=== PATIENT | female | born 1975 | race Caucasian/White ===

== ENCOUNTER 2017-04-25 02:17 | Emergency (ER) | payer OTHER, BC ==
[2017-04-25] MEDS ORDERED: IBUPROFEN 600 MG TABLET (FP) PO ONE (02:23)
[2017-04-25] MEDS ORDERED: DIPHTH,PERTUSS(ACELL),TET 0.5 ML DISP.SYRIN IM ONE (02:25)
[2017-04-25 02:27] VITALS: BP 129/88; PULSE 89; TEMP 98.1; BMI 27.3
--- NOTE | 2017-04-25 02:29 | PDOC ---
History of Present Illness - General Chief Complaint: Injury Stated Complaint: FELL DOWN 12 STEPS Time Seen by Provider: 04/25/17 02:23 History Source: Patient Exam Limitations: No Limitations - History of Present Illness Initial Comments: 04/25/17 02:25 This is a 41-year-old female who comes in with her for evaluation status post fall down some steps. Patient denies any passing out. Patient's complaining of right knee pain and left hip pain and right hand.. Patient was able to ambulate into the ED. PAST MEDICAL HISTORY: no significant history PAST SURGICAL HISTORY: no significant history FAMILY HISTORY: no pertinant history SOCIAL HISTORY: Pt lives with family and is employed. MEDICATIONS: reviewed ALLERGIES: As per nursing notes Review of Systems General: No fevers or chills, no weakness, no weight loss HEENT: No change in vision. No sore throat,. No ear pain CardioVascular: No chest pain or shortness of breath Respiratory:No cough, or wheezing. Gastrointestinal: no nausea, vomitting, diarrhea or constipation, No rectal bleeding Genitourinary: No dysuria, hematuria, or frequency Musculoskeletal: No joint or muscle pain or swelling Neurologic: No headache, vertigo, dizziness or loss of consciousness Psychiatric: nor depression Skin: No rashes or easy bruising Endocrine: no increased thirst or abnormal weight change Allergic: no skin or latex allergy All other systems reviewed and normal GENERAL: The patient is awake, alert, and fully oriented, in no acute distress. HEAD: Normal with no signs of trauma. EYES: Pupils equal, round and reactive to light, extraocular movements intact, sclera anicteric, conjunctiva clear. EXTREMITIES: Normal range of motion, no edema. Left knee there is a contusion with small abrasion no bony tenderness Right knee there is a contusion with abrasion but no bony tenderness neurovascular distal lateral lower extremities is intact Right hand there is a contusion over the thenar eminence but no bony tenderness Left hip there is tenderness of the left hip leg is not shortened or externally rotated neurovascular distal is intact Abdomen: Soft normal bowel sounds nontender NEUROLOGICAL: Normal speech, normal gait. grossly intact PSYCH: Normal mood, normal affect. SKIN: Warm, Dry, normal turgor, no rashes or lesions noted. X-rays left hip and pelvis were negative for any acute pathology Assessment and plan: This is a 41-year-old female who injured herself when she fell down some steps. Patient had several contusions and abrasions. Patient was given tetanus. X-rays were negative for any acute pathology Patient discharged home with her will follow-up with the primary care doctor. Patient was also instructed to take an anti-inflammatory for the pain. Past History - Past Medical History Allergies/Adverse Reactions: Allergies Allergy/AdvReac Type Severity Reaction Status Date / Time No Known Allergies Allergy Verified 04/25/17 02:18 Home Medications: Ambulatory Orders Hydrochlorothiazide [Hctz -] 25 mg PO DAILY 04/25/17 Lisinopril [Zestril] 10 mg PO DAILY 04/25/17 *DC/Admit/Observation/Transfer Diagnosis at time of Disposition: Contusion of knee, left Qualifiers: Encounter type: initial encounter Qualified Code(s): S80.02XA - Contusion of left knee, initial encounter Contusion of knee, right Qualifiers: Encounter type: initial encounter Qualified Code(s): S80.01XA - Contusion of right knee, initial encounter Contusion of left hip Qualifiers: Encounter type: initial encounter Qualified Code(s): S70.02XA - Contusion of left hip, initial encounter Contusion of right hand Qualifiers: Encounter type: initial encounter Qualified Code(s): S60.221A - Contusion of right hand, initial encounter - Discharge Dispostion Disposition: HOME Condition at time of disposition: Stable Admit: No - Referrals - Patient Instructions Additional Instructions: Take an anti-inflammatory such as Motrin for pain 2 tablets 3 times a day with food for the next 3-4 days. Return to the emergency department immediately with ANY new, persistent or worsening symptoms. Continue any medications as previously prescribed by your physician. You should follow up with your primary doctor as soon as possible regarding today's emergency department visit. . Please make sure your doctor reviews the results of your emergency evaluation. Thank you for coming to the Emergency Department today for your care. It was a pleasure to see you today. Please note that your evaluation is INCOMPLETE until you follow-up with your doctor. - Post Discharge Activity Forms/Work/School Notes: Back to Work
== END 2017-04-25 03:23 | disposition home or self-care (01) ==
LOC: FER 02:17
PROC: 3E0234Z Introduction of Serum, Toxoid and Vaccine into Muscle, Percutaneous Approach (ICD-10-PCS; principal; 2017-04-25)
DX: S80.02XA Contusion of left knee, initial encounter (principal); S80.01XA Contusion of right knee, initial encounter; S70.02XA Contusion of left hip, initial encounter; S60.221A Contusion of right hand, initial encounter; W10.8XXA Fall (on) (from) other stairs and steps, initial encounter; Y93.89 Activity, other specified; Y92.9 Unspecified place or not applicable
CPT/HCPCS: 73523-TC-FY; 90715; 99281-25

== ENCOUNTER 2017-11-16 22:13 | Emergency (ER) | payer OTHER, BC ==
[2017-11-16 22:21] VITALS: BP 131/89; PULSE 81; TEMP 97.9; BMI 26.7
--- NOTE | 2017-11-16 22:23 | PDOC ---
History of Present Illness - General History Source: Patient Exam Limitations: No Limitations - History of Present Illness Initial Comments: 11/16/17 22:52 The patient is a 42 year old female with a significant past medical history of hypertension who presents to the ED with complaints of abdominal pain, diarrhea , and vomiting since earlier today. Patient reports a gradual onset of epigastric pain around 3pm earlier today. Patient states her epigastric pain is intermittent, occuring every 30-40 minutes and lasting 3-4 minutes before residing. She describes her pain as a stabbing, burning, and cramping like sensation. Patient states she gets an episode of diarrhea and nausea after having an episode of epigastric pain. She reports 7 episodes of watery brown stool and 2 episodes of vomiting. Patient took naproxen and Bicitra with no relief of present symptoms. Patient notes she is currently on her menstrual period. She states she typically gets abdominal cramping and bloating associated with her period but notes her present symptoms are worse than her typical symptoms. Denies recent travel. Denies sick contacts. Denies new unusual foods. Denies fever or chills. Denies chest pain or shortness of breath. Denies dysuria or changes in urinary output. Denies hematochezia or blood in the vomit. Denies any other symptoms. PAST MEDICAL HISTORY: Hypertension PAST SURGICAL HISTORY: no significant history FAMILY HISTORY: no pertinent history SOCIAL HISTORY: Pt lives with family. Patient is a labor and delivery nurse. MEDICATIONS: reviewed ALLERGIES: As per nursing notes General: No fevers or chills, no weakness, no weight loss HEENT: No change in vision. No sore throat,. No ear pain CardioVascular: No chest pain or shortness of breath Respiratory:No cough, or wheezing. Gastrointestinal: + abdominal pain, nausea, vomiting, diarrhea. No constipation , No rectal bleeding Genitourinary: No dysuria, hematuria, or frequency Musculoskeletal: No joint or muscle pain or swelling Neurologic: No headache, vertigo, dizziness or loss of consciousness Psychiatric: nor depression Skin: No rashes or easy bruising Endocrine: no increased thirst or abnormal weight change Allergic: no skin or latex allergy All other systems reviewed and normal General: Well-nourished well-developed individual, no acute distress HEENT: Throat: Normal, tonsils normal, no erythema or exudate Neck: Supple, no meningeal signs, no lymphadenopathy Eyes::Pupils equal reactive and round, extraocular motion intact Chest: Nontender to palpation Cardiac: S1-S2 normal, regular rate and rhythm, no murmurs rubs or gallops Respiratory: Lungs clear to auscultation bilateral Abdomen: + Mild to moderate tenderness in the epigastric region. Soft, nondistended, normal bowel sounds. Extremities: Warm, dry, no cyanosis, clubbing, or edema Skin: No rashes Neuro: Alert and oriented x3, nonfocal exam, grossly intact, normal gait Psych: Normal mood and affect <Atif Ochoa - Last Filed: 11/16/17 22:52> - General History Source: Patient Exam Limitations: No Limitations - History of Present Illness Initial Comments: 11/16/17 23:31 A portion of this note was documented by scribe services under my direction. I have reviewed the details of the note, within reason, and agree with the documentation. The case summary and management plan written by me. EKG normal sinus rhythm at a rate of 69, no acute ST-T wave changes some nonspecific ST abnormalities otherwise normal EKG 01:00 Patient's CAT scan was positive for some nonspecific colitis otherwise normal. Assessment and plan: This is a 42-year-old female who comes in complaining of epigastric pain and some associated nausea vomiting and diarrhea. Patient was given Pepcid, IV fluids, Zofran, hyoscyamine. Patient improved with medications her workup was positive for nonspecific colitis. This most likely is viral in origin. Otherwise workup was negative for any other acute intra-abdominal process. Patient discharged home will follow up with her primary care doctor. I sent prescriptions to her pharmacy for hyoscyamine and Zofran. <Ravin Bauer I - Last Filed: 11/17/17 06:36> - General Chief Complaint: Pain, Acute Stated Complaint: ABDOMINAL PAIN Time Seen by Provider: 11/16/17 22:21 Past History <Atif Ochoa - Last Filed: 11/16/17 22:52> - Past Medical History COPD: No HTN: Yes - Suicide/Smoking/Psychosocial Hx Smoking History: Current every day smoker Have you smoked in the past 12 months: Yes Number of Cigarettes Smoked Daily: 10 Information on smoking cessation initiated: Yes 'Breaking Loose' booklet given: 04/25/17 Hx Alcohol Use: Yes (THREE TIMES A WEEK) Drug/Substance Use Hx: No Substance Use Type: None <Ravin Bauer I - Last Filed: 11/17/17 06:36> - Past Medical History Allergies/Adverse Reactions: Allergies Allergy/AdvReac Type Severity Reaction Status Date / Time No Known Allergies Allergy Verified 04/25/17 02:18 Home Medications: Ambulatory Orders Hydrochlorothiazide [Hctz -] 25 mg PO DAILY 04/25/17 Lisinopril [Zestril] 10 mg PO DAILY 04/25/17 Hyoscyamine Odt [Levsin Odt -] 0.125 mg PO TID #14 tab.rapdis 11/17/17 Ondansetron [Zofran Odt -] 4 mg SL TID #12 od.tablet 11/17/17 *Physical Exam - Vital Signs Last Vital Signs Temp Pulse Resp BP Pulse Ox 97.9 F 81 16 131/89 96 11/16/17 22:13 11/16/17 22:13 11/16/17 22:13 11/16/17 22:13 11/16/17 22:13 <Atif Ochoa - Last Filed: 11/16/17 22:52> - Vital Signs Last Vital Signs Temp Pulse Resp BP Pulse Ox 97.9 F 81 16 131/89 96 11/16/17 22:13 11/16/17 22:13 11/16/17 22:13 11/16/17 22:13 11/16/17 22:13 <Ravin Bauer I - Last Filed: 11/17/17 06:36> Heart Score/ECG Review - History History: Slightly suspicious - Electrocardiogram EKG: Non specific repolarization disturbance - Age Age: </= 45 - Risk Factors Risk Factors Heart Score: Yes Hx Hypertension Based on the list above the patient has:: 1-2 risk factors - Troponin Troponin: </= normal limit - Score Heart Score - Total: 2 <Ravin Bauer I - Last Filed: 11/17/17 06:36> ED Treatment Course - LABORATORY CBC & Chemistry Diagram: 11/16/17 22:50 11/16/17 22:50 <Ravin Bauer I - Last Filed: 11/17/17 06:36> *DC/Admit/Observation/Transfer - Attestations Scribe Attestion: 11/16/17 22:53 Documentation prepared by Atif Ochoa, acting as medical screener for Ravin Bauer MD <Atif Ochoa - Last Filed: 11/16/17 22:52> - Discharge Dispostion Decision to Admit order: No <Ravin Bauer I - Last Filed: 11/17/17 06:36> Diagnosis at time of Disposition: Abdominal pain - Discharge Dispostion Disposition: HOME Condition at time of disposition: Stable - Prescriptions Prescriptions: Hyoscyamine Odt [Levsin Odt -] 0.125 mg PO TID #14 tab.rapdis Ondansetron [Zofran Odt -] 4 mg SL TID #12 od.tablet - Referrals Referrals: Kameron Golden [Primary Care Provider] - - Patient Instructions Additional Instructions: Take tylenol or motrin as needed for pain. Return for worsening symptoms. Follow up with your Doctor. - Post Discharge Activity
[2017-11-16] MEDS ORDERED: SODIUM CHLORIDE 1,000 ML IV ONE (22:45)
[2017-11-16] MEDS ORDERED: ONDANSETRON 4 MG/2 ML VIAL IVPUSH ONE (22:50)
[2017-11-16] MEDS ORDERED: HYOSCYAMINE SULFATE 0.125 MG *ODT PO ONE (22:52)
[2017-11-16] MEDS ORDERED: FAMOTIDINE 20 MG/50 ML IVPB 20 MG/50 ML MG IVPB ONE ×2 (22:53→22:56)
[2017-11-16] MEDS ORDERED: HYOSCYAMINE SULFATE 0.125 MG *ODT ONE (22:56)
[2017-11-16] MEDS ORDERED: ONDANSETRON 4 MG/2 ML VIAL ONE (22:57)
[2017-11-16 23:16] LABS: EOS % 0.7 % (0-4.5)
[2017-11-16 23:22] LABS: ALK PHOS 36 U/L (32-92); ANION GAP 9 MMOL/L (8-16); BLOOD UREA NITROGEN 16 mg/dl (7-18); CALCIUM 8.6 mg/dl (8.4-10.2); CHLORIDE 97 mmol/L (98-107); CO2 24 mmol/L (22-28); GLUCOSE,RANDOM 114 mg/dl (74-106); POTASSIUM 3.4 mmol/L (3.5-5.1); SGOT/AST 20 U/L (10-42); SGPT/ALT 17 U/L (10-40); SODIUM 130 mmol/L (136-145); TOT PROT 6.2 g/dl (6.4-8.3)
[2017-11-16 23:24] LABS: PH,URINE 7.5 (4.5-8); URINE APPEARANCE Clear; URINE BILIRUBIN Negative (NEGATIVE); URINE COLOR Yellow; URINE GLUCOSE (UA) Negative (NEGATIVE); URINE KETONE Trace (NEGATIVE); URINE LEUK ESTERASE Negative (NEGATIVE); URINE NITRITE Negative (NEGATIVE); URINE PROTEIN Negative (NEGATIVE); URINE UROBILINOGEN 0.2 (0.2-1.0)
[2017-11-16 23:30] LABS: RBC 4.52 M/mm3 (3.60-5.2); RDW 12.1 % (11.6-15.6)
[2017-11-16 23:31] LABS: HCG,QUALITATIVE URINE Negative
[2017-11-16 23:33] LABS: CREATININE < 0.6 mg/dl (0.6-1.3)
[2017-11-16 23:34] LABS: BASO % 0.8 % (0-2.0); HEMATOCRIT 44.1 % (32.4-45.2); HEMOGLOBIN 15.2 GM/dl (10.7-15.3); LYMPH % 9.3 % (8-40); MCH 33.6 pg (25.7-33.7); MCHC 34.4 g/dl (32.0-36.0); MEAN CELL VOLUME 97.7 fl (80-96); MONO % 4.4 % (3.8-10.2); NEUT % 84.8 % (42.8-82.8); PLATELET COUNT 314 K/MM3 (134-434); WHITE BLOOD COUNT 12.7 K/mm3 (4.0-10.8)
[2017-11-16 23:47] LABS: LIPASE 84 U/L (73-393)
[2017-11-16 23:57] LABS: URINE WBC 0-3 (0-5)
--- NOTE | 2017-11-17 09:10 | EKG ---
Test Reason : Blood Pressure : / mmHG Vent. Rate : 069 BPM Atrial Rate : 069 BPM P-R Int : 162 ms QRS Dur : 088 ms QT Int : 446 ms P-R-T Axes : 048 045 031 degrees QTc Int : 477 ms NORMAL SINUS RHYTHM NONSPECIFIC ST ABNORMALITY ABNORMAL ECG NO PREVIOUS ECGS AVAILABLE Confirmed by SHANNAN GOODMAN MD ([id number]) on 11/17/2017 9:10:00 AM Referred By: MD SWANSON Confirmed By:SHANNAN GOODMAN MD
== END 2017-11-17 01:23 | disposition home or self-care (01) ==
LOC: FER 22:13
PROC: 3E033GC Introduction of Other Therapeutic Substance into Peripheral Vein, Percutaneous Approach (ICD-10-PCS; principal; 2017-11-16)
PROC: 3E0337Z Introduction of Electrolytic and Water Balance Substance into Peripheral Vein, Percutaneous Approach (ICD-10-PCS; 2017-11-16)
DX: R10.13 Epigastric pain (principal); I10 Essential (primary) hypertension; F17.210 Nicotine dependence, cigarettes, uncomplicated
CPT/HCPCS: 36415; 74177-TC; 80053; 81003; 81015; 82550; 83690; 84484; 84703; 85025; 93005; 99282-25; J7030

== ENCOUNTER 2020-10-06 02:55 | Emergency (ER) | payer OTHER, BC ==
[2020-10-06] MEDS ORDERED: LIDOCAINE HCL 2% (20ML MULTI-DOSE VIAL) ONE (03:01)
[2020-10-06 03:03] VITALS: BP 134/99; PULSE 96; TEMP 97.9; BMI 26.2
[2020-10-06] MEDS ORDERED: NEOMYCIN/POLYMYXN/HC OTIC SUSPENSION 10 ML BOTTLE ONE (03:08)
== END 2020-10-06 03:23 | disposition home or self-care (01) ==
LOC: FER 02:55
DX: T16.2XXA Foreign body in left ear, initial encounter (principal)
CPT/HCPCS: 99282-25